=== PATIENT | male | born 1980 | race Caucasian/White ===

== ENCOUNTER 2022-11-15 07:16 | Outpatient (REF) | payer BC, SELFPAY ==
[2022-11-15 11:06] LABS: MANUAL DIFF FLAG NO
[2022-11-15 11:21] LABS: Basophils Percent Auto 0.5 % (0-2); Eosinophils Absolute Auto 0.3 X10*3/uL (0.0-0.4); Eosinophils Percent Auto 4.9 % (0-4); Hematocrit 44.4 % (42.0-52.0); Hemoglobin 14.9 g/dl (14.0-18.0); Imm Gran Abs Auto 0.01 X10*3/uL (0.00-0.03); Imm Gran Pct Auto 0.2 % (0.0-0.4); Lymphocytes Absolute Auto 1.9 X10*3/uL (1.2-4.9); Lymphocytes Percent Auto 32.7 % (20-40); Mean Corpuscular HGB Conc 33.6 g/dl (31.0-36.0); Mean Corpuscular Hemoglobin 30.7 pg (27.0-33.0); Mean Corpuscular Volume 91.5 fL (80.0-98.0); Mean Platelet Volume 9.6 fL (9.4-12.4); Monocytes Absolute Auto 0.6 X10*3/uL (0.1-1.2); Monocytes Percent Auto 10.4 % (2-11); Neutrophils Percent Auto 51.3 % (45-73); Platelet Count 251 X10*3/uL (160-400); Red Blood Count 4.85 X10*6/uL (4.60-5.80); White Blood Count 5.8 X10*3/uL (4.8-10.8)
[2022-11-15 11:38] LABS: Appearance Urine Clear; Color Urine Yellow; Glucose Urine UA Negative (Negative); Leukocyte Esterase Urine Negative (Negative); Nitrite Urine Negative (Negative); Specific Gravity - Urine 1.025 (1.005-1.025); Urine Blood Negative (Negative); Urine Ketones Negative (Negative); Urine Protein Negative (Neg-Trace)
[2022-11-15 11:48] LABS: Alanine Aminotransferase 22 U/L (0-40); Albumin Level 4.2 g/dL (3.5-5.0); Alkaline Phosphatase 51 U/L (39-117); Anion Gap 11 (12-20); Aspartate Amino Transferase 21 U/L (5-37); Blood Urea Nitrogen 13 mg/dL (9-16); Carbon Dioxide 25 mmol/L (22-29); Chloride 109 mmol/L (96-108); Cholesterol 192 mg/dL; Estimated Glomerular Filt Rate > 60; Glucose Fasting 100 mg/dL (60-99); HDL Cholesterol 46 mg/dL; LDL Cholesterol Calculated 127 mg/dl; Potassium 4.3 mmol/L (3.3-5.1); Sodium 141 mmol/L (135-145); Total Protein 6.9 g/dL (6.5-8.0); Triglycerides 95 mg/dL
[2022-11-15 12:15] LABS: Prostate Specific Antigen Scr 1.78 ng/mL (<0.05-4.0)
== END 2022-11-15 07:17 | disposition home or self-care (01) ==
LOC: HO.WFDLDS 07:16
PROVIDERS: Visit Provider Family Medicine
DX: Z00.00 Encounter for general adult medical examination without abnormal findings (principal); Z12.5 Encounter for screening for malignant neoplasm of prostate
CPT/HCPCS: 36415; 80053; 80061; 81003; 84153; 84443; 85025

== ENCOUNTER 2023-05-04 11:47 | Outpatient (AMB) | payer BC, SELFPAY ==
--- NOTE | 2023-05-04 11:52 | MHC.PC.OV ---
Vital Signs 05/04/23 11:54 Height 6 ft 2 in Weight 228 lb 8 oz BMI 29.3 BP 120/72 Blood Pressure Location Rt brachial Position Sitting Pulse 62 Pulse Source Pulse Oximeter Pulse Oximetry (%) 98 Oxygen Delivery Method Room Air Intake Visit Reasons: snoring concern Intake Note: Patient is here with a snoring concern, tried products without results. Allergies No Known Allergies Allergy (Verified 05/04/23 11:55) Tobacco use date assessed: 05/04/23 Dental Screening Dental Screen Date: 05/04/23 Did you have a dental visit in the last 12 months?: Yes Did you have a dental problem in the last 6 months where you did not have access to dental care?: No Was dental information given to patient?: No HPI snoring concern HPI Details 43 y/o male presents today with snoring concerns. He reports it has been getting more pronounced lately which his has noticed. He reports he has not had a sleep study yet. [facility] Surgical History H/O vasectomy Social History Housing: House Patient Tobacco Use Status: Never used Tobacco e-Cigarette/Vaping Use: Never Used Current occupational status: employed Cognitive needs: No Hearing needs: No Vision needs: No Questionnaire MARIBEL-7 AMB Questionnaire MARIBEL-7 Date MARIBEL - 7 assessed: 09/29/22 Source: Developed by Drs. Robles Guo, Alyse Baig, Gabino Hernandez and colleagues, with an educational sergey from [employer]. Review of Systems Const Denies chills, Denies fatigue, Denies fever(s), Denies headache(s) and Denies weakness ENT Denies dizziness and Denies headache(s) Card Denies dyspnea Resp Denies cough, Denies dyspnea, Denies wheezing and Denies other (shortness of breath) Musc Denies numbness and Denies tingling Neuro Denies dizziness, Denies headache(s), Denies numbness, Denies tingling and Denies weakness Psych Denies anxiety and Denies depression Endo Denies fatigue Aller/Immun Denies wheezing Physical exam (Primary Care) Vital Signs: Last Vital Signs Pulse 62 05/04/23 11:54 BP 120/72 05/04/23 11:54 Pulse Ox 98 05/04/23 11:54 Oxygen Delivery Method Room Air 05/04/23 11:54 BMI result Body Mass Index 29.3 Tobacco/Smoking Status: Tobacco use Status Tobacco use date assessed 05/04/23 05/04/23 11:56 Patient Tobacco Use Status Never used Tobacco 05/04/23 11:56 e-Cigarette/Vaping Use Never Used 05/04/23 11:56 Const General: well developed; No acute distress Nutritional Appearance: well nourished Orientation/consciousness: patient oriented x3 HENMT Head: Yes normocephalic and Yes atraumatic Eyes General: appearance normal, both eyes and all related structures Pupils: Equal, round and reactive pupils present EOM: EOMs intact bilaterally Resp Effort & Inspection: normal respiratory effort Neuro General: patient oriented x3 and gait normal Cranial nerves: Yes Equal, round and reactive pupils present Psych Affect: normal affect Assessment and Plan Assessment & Plan (1) Snoring: Code(s): R06.83 - Snoring Plan: Snoring and nasal passages poorly patent despite no evidence of nasal congestion Appears to have left nasal septum deviation This may be the underlying cause of snoring Will refer him to ENT Will also refer him to Sleep Medicine (2) Nasal septal deviation: Code(s): J34.2 - Deviated nasal septum Plan: As above Orders: Referrals Ear/Nose/Throat Referral R06.83 - Snoring Sleep Medicine Referral G47.9 - Sleep disorder, unspecified, R06.83 - Snoring Coding Level of Care Code Est Pt Level 3 (19272) Diagnoses Snoring R06.83 Nasal septal deviation J34.2
[2023-05-04 11:54] VITALS: BP 120/72; PULSE 62; O2SAT 98; BMI 29.3
== END 2023-05-04 12:59 | disposition home or self-care (01) ==
PROVIDERS: PCP Family Medicine; Visit Provider Family Medicine
DX: R06.83 Snoring (principal); J34.2 Deviated nasal septum
CPT/HCPCS: 99213

== ENCOUNTER 2023-07-30 15:24 | Outpatient (AMB) | payer BC, SELFPAY ==
--- NOTE | 2023-07-30 15:33 | A.OFFVIS_ITS ---
Intake Vital Signs 07/30/23 15:34 Height 6 ft 2 in Weight 226 lb BMI 29.0 BP 130/82 Blood Pressure Location Rt brachial Position Sitting Intake Visit Reasons: INP-Sleep Disorder/Confirmed Intake Note: Patient presents for sleep disorder. Patient states my main reason for being here is for snoring Allergies No Known Allergies Allergy (Verified 05/04/23 11:55) HPI HPI Comments History of Present Illness Details 43 y/o male patient [facility] Pt reports loud snoring and witnessed apnea spells. He has appointment with ENT in November. He tired nasal strip, and taped his mouth, mouth guard but did not help to reduce sleep. Pt also lost about 20 lb over the last 10 months, but he does not noticed that any improvement. Pt reports jerk movement when he falls asleep. Sleep questionnaire: Have you ever been diagnosed with a sleep disorder? No. Have you ever had a sleep study in the past? No. Have you ever been treated for a sleep disorder? No. Do you take medications for a sleep disorder? No. Do you snore? Yes. Do you wake up gasping at night? No. Do you have episodes of apneas? Yes. If yes, are they witnessed? Yes. Do you have episodes of nocturnal chest pain or dyspnea? Yes. Do you have difficulty initiating sleep? No. Do you have difficulty maintaining sleep? No. Do you wake up tired? No. Do you have headaches upon awakening? No. Do you wake up with dry mouth or throat? Not normally. Do you have GERD? No. Do you have nocturia? Not really. Do you have nocturnal leg cramps? No. Do you have symptoms of restless legs? No. Do you act out your dreams? No. Sleep hygiene questionnaire: What is your usual sleep routine? Usual bedtime is at 11:30 pm ; Usual wake up time is at 6 am. Do you take naps? No. Is your sleep environment cool, dark, and quiet? Yes. Do you exercise? 4-5 times a week. Do you take caffeine or other stimulants? Coffee in the morning and afternoon. Do you use electronics in bed? Yes, sometimes. What is your work schedule? 6 :30 am to 5 pm. Hypersomnolence questionnaire: Do you have daytime tiredness or fatigue? Yes. Do you easily fall asleep when inactive? No. Have you ever had episodes of sudden weakness? No. Have you ever had episodes of sudden weakness associated with strong emotions? No. PFSH Surgical History Hx laparoscopic cholecystectomy H/O vasectomy Family History Father Atrial fibrillation Social History Housing: House Patient Tobacco Use Status: Never used Tobacco e-Cigarette/Vaping Use: Never Used Current occupational status: employed Cognitive needs: No Hearing needs: No Vision needs: No Review of Systems Const All systems reviewed & are unremarkable except as noted in HPI and below ENT Reports Normal hearing present Neuro Reports Normal hearing present Physical Exam Vital Signs: Last Vital Signs BP 130/82 07/30/23 15:34 BMI result Body Mass Index 29.0 Const General: cooperative and healthy appearing Nutritional Appearance: overweight Orientation/consciousness: patient oriented x3 Limitations: no limitations Neck Neck: Yes full ROM and Yes supple Resp Effort & Inspection: normal respiratory effort and able to speak in complete sentences Neuro General: patient oriented x3 and gait normal Cranial nerves: Yes Bilaterally intact EOM present, Yes Normal facial strength present, Yes Midline tongue present, Yes Symmetric palate elevation present, Yes Normal hearing present, Yes Ability to bilaterally rotate head present and Yes Ability to bilaterally elevate shoulders present Cognition (Neuro): normal cognition Gait exam (Neuro): Normal gait present Motor exam (neuro): 5/5 motor strength present throughout, Pronator motor function not present and no tremor noted Psych Appearance: grossly normal Mental Status: mental status grossly normal Speech and movement: Normal speech and movement present Affect: normal affect Attitude: cooperative Assessment & Plan Assessment & Plan (1) Snoring: Code(s): R06.83 - Snoring (2) Daytime sleepiness: Code(s): R40.0 - Somnolence Plan Pt is advised to undergo home sleep study to assess for sleep apnea. Will f/u with pt after study to discuss results and appropriate treatment options. Advised patient to sleep on his side. Pt to call with any worsening concerns or questions. Orders: Orders RT home sleep study Today R06.83 - Snoring, R40.0 - Somnolence Coding Level of Care Code New Pt Level 3 (37229) Diagnoses Snoring R06.83 Daytime sleepiness R40.0
[2023-07-30 15:34] VITALS: BP 130/82; BMI 29.0
== END 2023-07-30 16:03 | disposition home or self-care (01) ==
PROVIDERS: PCP Family Medicine; Visit Provider Nurse Practitioner Family
DX: R06.83 Snoring (principal); R40.0 Somnolence
CPT/HCPCS: 99203

== ENCOUNTER → 2023-07-30 15:24 | Outpatient (BNVA) | payer BC, SELFPAY | PROVIDERS: PCP Family Medicine; Visit Provider Nurse Practitioner Family ==

== ENCOUNTER → 2023-10-08 14:03 | Outpatient (REF) | payer BC, SELFPAY | LOC: HO.SL 14:03 | PROVIDERS: PCP Family Medicine; Visit Provider Nurse Practitioner Family | DX: R40.0 Somnolence (principal); R06.83 Snoring | CPT/HCPCS: 95806 ==

== ENCOUNTER → 2023-10-08 14:16 | Outpatient (BNV) | payer BC, SELFPAY | PROVIDERS: PCP Family Medicine; Visit Provider Psychiatry & Neurology Neurology | DX: R06.83 Snoring (principal) | CPT/HCPCS: 95806 ==

== ENCOUNTER 2024-01-25 10:58 | Outpatient (AMB) | payer BC, SELFPAY ==
[2024-01-25 11:20] VITALS: BP 120/62; PULSE 67; O2SAT 98; BMI 28.1
--- NOTE | 2024-01-25 11:20 | A.OFFPC_ITS ---
Vital Signs 01/25/24 11:20 Height 6 ft 2 in Weight 219 lb BMI 28.1 BP 120/62 Blood Pressure Location Lt brachial Position Sitting Pulse 67 Pulse Source Pulse Oximeter Pulse Oximetry (%) 98 Oxygen Delivery Method Room Air Intake Visit Reasons: CPE with f/u labs and health maint. Intake Note: Patient is here today for his physical. Patient would like to talk about podiatry referral due to foot inury about a year ago. Allergies No Known Allergies Allergy (Verified 01/25/24 11:24) Tobacco use date assessed: 01/25/24 Dental Screening Dental Screen Date: 01/25/24 Did you have a dental visit in the last 12 months?: Yes Did you have a dental problem in the last 6 months where you did not have access to dental care?: No Was dental information given to patient?: Patient has dentist HPI CPE with f/u labs and health maint. HPI Details 43 y/o male presents for a CPE with f/u labs and health maintenance. No recent labs to review. Pt reports R foot pain due to an injury from last year. He states he thinks he might have injured it exercising. Pt notes he had done a sleep study which came out negative. PFSH Surgical History Hx laparoscopic cholecystectomy H/O vasectomy Family History (Updated 01/25/24 @ 11:26 by Maria Elena Serna [facility]) Father Atrial fibrillation Social History Housing: House Patient Tobacco Use Status: Never used Tobacco e-Cigarette/Vaping Use: Never Used service: No Current occupational status: employed Cognitive needs: No Hearing needs: No Vision needs: No Questionnaire PHQ-9 Over the last 2 weeks, how often have you been bothered by any of the following problems? 1. Little interest or pleasure in doing things: not at all 2. Feeling down, depressed, or hopeless: not at all 3. Trouble falling or staying asleep, or sleeping too much: not at all 4. Feeling tired or having little energy: not at all 5. Poor appetite or overeating: not at all 6. Feeling bad about yourself - or that you are a failure or have let yourself or your family down: not at all 7. Trouble concentrating on things, such as reading the newspaper or watching television: not at all 8. Moving or speaking so slowly that other people could have noticed. Or the opposite - being so fidgety or restless that you have been moving around a lot more than usual: not at all 9. Thoughts that you would be better off or of hurting yourself in some way: not at all Total score: 0 Depression Screening Interpretation: Negative Depression Screening Done: Yes 60315 - PHQ-9 Billing: Yes Source: Developed by Drs. Robles Guo, Alyse Baig, Gabino Hernandez and colleagues, with an educational sergey from [employer]. Thrive Questionnaire Date Thrive assessed: 01/25/24 I am a: Patient What is your living situation today?: I have a steady place to live Within the past 12 months, did the food you bought not last and you didn't have the money to get more?: Never true Within the past 12 months, did you worry whether your food would run out before you got money to buy more?: Never true Do you have trouble paying for medicines?: No Do you have trouble getting transportation to medical appointments?: No Do you have trouble paying your heating and electricity bill?: No Do you have trouble taking care of your child, family member or friend?: No Do you have trouble with day-to-day activities such as bathing, preparing meals, shopping, managing finances, etc.?: No Are you currently unemployed and looking for a job?: No Are you interested in more education?: No THRIVE Score: 0 AUDIT C Alcohol Use Questionnaire (AUDIT-C) 1. How often do you have a drink containing alcohol?: 2-4 times a month 2. How many drinks containing alcohol do you have on a typical day when you are drinking?: 1 or 2 3. How often do you have six or more drinks on one occasion?: Never Total Score: 2 MARIBEL-7 AMB Questionnaire MARIBEL-7 Date MARIBEL - 7 assessed: 01/25/24 Feeling nervous, anxious, or on edge: 0 = Not at all Not being able to stop or control worryin = Not at all Worrying too much about different things: 0 = Not at all Trouble relaxin = Not at all Being so restless that it is hard to sit still: 0 = Not at all Becoming easily annoyed or irritable: 0 = Not at all Feeling afraid as if something awful might happen: 0 = Not at all Total MARIBEL-7 score (0-4 normal; 5-9 mild; 10-14 moderate; 15-21 severe): 0 Source: Developed by Drs. Robles Guo, Alyse Baig, Gabino Hernandez and colleagues, with an educational sergey from [employer]. MARIBEL-7 Assessment Billing MARIBEL-7 Assessment Tool: MARIBEL-7 Assessment 79806 Review of Systems Const Denies chills, Denies fatigue, Denies fever(s), Denies headache(s) and Denies weakness Eyes Denies change in vision ENT Denies dizziness, Denies headache(s), Denies hearing loss, Denies nasal conge stion, Denies sinus pain, Denies sinus pressure and Denies sore throat Card Denies chest pain, Denies lightheadedness, Denies dyspnea and Denies other (palpitations) Resp Denies cough, Denies dyspnea and Denies wheezing GI Denies abdominal pain, Denies melena, Denies hematochezia, Denies change in bowel habits, Denies dyspepsia and Denies nausea Denies hematuria and Denies dysuria Musc Denies abnormal gait, Denies myalgias, Denies arthralgias, Denies numbness and Denies tingling Skin/Breast Denies rash, Denies unusual bruising and Denies wounds Neuro Denies abnormal gait, Denies dizziness, Denies headache(s), Denies memory loss, Denies numbness, Denies Sensory deficit (Neuro), Denies tingling and Denies weakness Psych Denies anxiety, Denies depression and Denies memory loss Endo Denies cold intolerance, Denies fatigue, Denies heat intolerance, Denies polydipsia and Denies polyuria Maged/Lymph Denies easy bleeding and Denies easy bruising Aller/Immun Denies wheezing Physical exam (Primary Care) Vital Signs: Last Vital Signs Pulse 67 01/25/24 11:20 BP 120/62 01/25/24 11:20 Pulse Ox 98 01/25/24 11:20 Oxygen Delivery Method Room Air 01/25/24 11:20 BMI result Body Mass Index 28.1 Tobacco/Smoking Status: Tobacco use Status Tobacco use date assessed 01/25/24 01/25/24 11:32 Patient Tobacco Use Status Never used Tobacco 01/25/24 11:22 e-Cigarette/Vaping Use Never Used 01/25/24 11:22 PHQ-9: PHQ-9 Score PHQ-9: Total score 0 01/25/24 11:44 Depression Screening Interpretation: Negative Thrive Assessment: Date of Thrive Assessment Date Thrive assessed 01/25/24 01/25/24 11:32 Const General: no acute distress, well developed, alert and awake Nutritional Appearance: well nourished Orientation/consciousness: patient oriented x3 HENMT Head: Yes normocephalic and Yes atraumatic Ears: hearing grossly normal bilaterally and TM's normal bilaterally General nose exam: Normal external nose present and Normal nares present Mouth: Normal oral and palatal mucosa present and moist mucous membranes Teeth and gingiva: dentition normal Throat: Yes posterior oropharynx normal Eyes General: appearance normal, both eyes and all related structures Pupils: Equal, round and reactive pupils present and Pupil accommodation reflex normal EOM: EOMs intact bilaterally Neck Neck: Yes normal visual inspection, Yes no lymphadenopathy and Yes trachea midline Thyroid: Thyroid normal Carotids: no bruits Lymphatic: no lymphadenopathy noted Chest Chest palpation & inspection: normal inspection of the chest Resp Effort & Inspection: normal respiratory effort Auscultation: clear to auscultation bilaterally Cardio Rate: regular rate Rhythm: regular rhythm Heart sounds: S1 normal heart sound present, S2 normal heart sound present, no gallops, no murmurs and no rubs Bruits: no abdominal aortic bruits and no carotid bruits GI Palpation (GI): No Abdominal aortic bruit present, Soft to palpation, nontender, No hepatosplenomegaly present and No Rebound tenderness present Auscultation: normal bowel sounds General: Yes no CVA tenderness Back/Spine/Pelvis Back: no CVA tenderness Cervical Spine: cervical ROM normal and No Cervical spine tenderness Thoracic/Lumbar Spine: thoraco-lumbar ROM normal, No pain with thoraco-lumbar ROM, No thoracic spinal tenderness and No lumbar spinal tenderness Skin Lesions: no lesions Rashes: no rashes Trauma: no lacerations or abrasions Wounds: no wounds Nails: normal Neuro General: patient oriented x3 Cranial nerves: Yes Equal, round and reactive pupils present Cognition (Neuro): normal cognition Gait exam (Neuro): Normal gait present Motor exam (neuro): 5/5 motor strength present throughout Sensory Exam: No Sensory deficit (Neuro) Deep tendon reflexes (DTR's): Right patellar reflex intensity grade: 2+ and Left patellar reflex intensity grade: 2+ Extrem General: Yes normal to inspection and No edema Psych Appearance: grossly normal Affect: normal affect Attitude: cooperative Thought process: Normal thought process present Assessment and Plan Assessment & Plan (1) Adult general medical exam: Code(s): Z00.00 - Encounter for general adult medical examination without abnormal findings Plan: Old?male?presents?for?complete?physical?exam Encouraged?healthy?diet?with?active?lifestyle?and?plenty?of?exercise (2) Snoring: Code(s): R06.83 - Snoring Plan: Patient?had?sleep?study?which?was?negative ENT?discussed?medical?management?versus?surgery?and?currently?patient?intends?to ?use?Flonase Will?send?script (3) Right foot pain: Code(s): M79.671 - Pain in right foot Plan: Pain?with?plantar?flexion,?eversion?and?lateral?compression. No?disc rete?moment?of?injury?but?patient?exercises?frequently?with?impact?exercises?suc h?as?running Check?x-ray?to?rule?out?stress?fracture Requests?referral?to?Podiatry-made (4) Nasal septal deviation: Code(s): J34.2 - Deviated nasal septum Plan: As?above,?patient?has?some?nasal?septal?deviation?and?snoring. Sleep?study?was?negative. ENT?recommended?medical?management.??I?am?sending?a?script?for?Flonase (5) Screening for prostate cancer: Code(s): Z12.5 - Encounter for screening for malignant neoplasm of prostate Plan: Will?check?PSA?with?his?labs Orders: Orders Comprehensive [place]. Panel Fast Today Z00.00 - Encounter for general adult medical examination without abnormal findings Lipid Panel Today Z00.00 - Encounter for general adult medical examination without abnormal findings UA and rflx microscopic Today Z00.00 - Encounter for general adult medical examination without abnormal findings XR foot RT 2V Today M79.671 - Pain in right foot Microalbumin, Random (w Creat) Today I10 - Essential (primary) hypertension Prostate Specific Antigen Scr Today Z12.5 - Encounter for screening for malignant neoplasm of prostate TSH reflex Free T4 Today Z00.00 - Encounter for general adult medical examination without abnormal findings Referrals Podiatry Referral M79.671 - Pain in right foot Medications: New fluticasone propionate 50 mcg/actuation (Flonase Allergy Relief) administer into each nostril 1 spray intranasal Q12H 30 days 16 grams 2RF Coding Level of Care Code Est Pt Level 3 (59427) Est Pt Prev Care 40-64y(09463) Diagnoses Adult general medical exam Z00.00 Snoring R06.83 Right foot pain M79.671 Nasal septal deviation J34.2 Screening for prostate cancer Z12.5 Additional Codes MARIBEL-7 Assessment Billing - MARIBEL-7 Assessment Tool: MARIBEL-7 Assessment 69608 ([id number])
== END 2024-01-25 12:05 | disposition home or self-care (01) ==
PROVIDERS: Visit Provider Family Medicine
DX: Z00.00 Encounter for general adult medical examination without abnormal findings (principal); M79.671 Pain in right foot; R06.83 Snoring; J34.2 Deviated nasal septum; Z12.5 Encounter for screening for malignant neoplasm of prostate
CPT/HCPCS: 99213; 99396

== ENCOUNTER 2024-02-07 09:20 | Outpatient (REF) | payer BC, SELFPAY ==
[2024-02-07 12:15] LABS: Appearance Urine Clear; Color Urine Yellow; Glucose Urine UA Negative (Negative); Leukocyte Esterase Urine Negative (Negative); Nitrite Urine Negative (Negative); PH 6.5 (5.0-9.0); Urine Blood Negative (Negative); Urine Ketones Negative (Negative); Urine Protein Negative (Neg-Trace)
[2024-02-07 12:48] LABS: Alanine Aminotransferase 20 U/L (0-40); Albumin Level 4.3 g/dL (3.5-5.0); Alkaline Phosphatase 44 U/L (39-117); Anion Gap 10 (12-20); Aspartate Amino Transferase 18 U/L (5-37); Bilirubin Total 1.9 mg/dL (0.0-1.0); Blood Urea Nitrogen 13 mg/dL (9-16); Calcium 9.3 mg/dL (8.4-10.2); Carbon Dioxide 27 mmol/L (22-29); Chloride 107 mmol/L (96-108); Cholesterol 152 mg/dL (<200); Estimated Glomerular Filt Rate > 60; Glucose Fasting 93 mg/dL (60-99); HDL Cholesterol 54 mg/dL (>40); LDL Cholesterol Calculated 84 mg/dL (<100); Potassium 4.1 mmol/L (3.3-5.1); Sodium 140 mmol/L (135-145); TSH reflex Free T4 1.38 uIU/mL (0.32-4.0); Triglycerides 73 mg/dL (<150)
[2024-02-07 12:52] LABS: Prostate Specific Antigen Scr 1.31 ng/mL (<0.05-4.0)
[2024-02-07 12:58] LABS: Microalbumin Urine < 5.0 mg/L
== END 2024-02-07 09:21 | disposition home or self-care (01) ==
LOC: HO.WFDLDS 09:20
PROVIDERS: Visit Provider Family Medicine
DX: Z00.00 Encounter for general adult medical examination without abnormal findings (principal); I10 Essential (primary) hypertension; Z12.5 Encounter for screening for malignant neoplasm of prostate
CPT/HCPCS: 36415; 80053; 80061; 81003; 82043; 82570; 84153; 84443

== ENCOUNTER → 2024-02-14 14:02 | Outpatient (AMB) | payer BC, SELFPAY ==
--- NOTE | 2024-02-14 13:57 | MHC.PC.OV ---
Intake Visit Reasons: f/u CPE-labs via telemedicine Intake Note: Patient is scheduled to follow up on his labs today. Allergies No Known Allergies Allergy (Verified 01/25/24 11:24) Tobacco use date assessed: 02/14/24 Dental Screening Dental Screen Date: 01/25/24 HPI f/u CPE-labs via telemedicine HPI Details 43 y/o male presents to f/u CPE-labs via telemedicine. Labs were drawn 02/07/24. Reviewed labs with pt. Triglycerides 73. TC 152. LDL 84. HDL 54. Fasting glucose 93. His labs were fine. PFSH Medical History Foot pain Surgical History Hx laparoscopic cholecystectomy H/O vasectomy Family History Father Atrial fibrillation Social History Housing: House Patient Tobacco Use Status: Never used Tobacco e-Cigarette/Vaping Use: Never Used service: No Current occupational status: employed Cognitive needs: No Hearing needs: No Vision needs: No Questionnaire Thrive Questionnaire Date Thrive assessed: 01/25/24 MARIBEL-7 AMB Questionnaire MARIBEL-7 Date MARIBEL - 7 assessed: 01/25/24 Source: Developed by Drs. Robles Guo, Alyse Baig, Gabino Hernandez and colleagues, with an educational sergey from [employer]. Review of Systems Const Denies chills, Denies fatigue, Denies fever(s), Denies headache(s) and Denies weakness ENT Denies dizziness and Denies headache(s) Card Denies dyspnea Resp Denies cough, Denies dyspnea, Denies wheezing and Denies other (shortness of breath) Musc Denies numbness and Denies tingling Neuro Denies dizziness, Denies headache(s), Denies numbness, Denies tingling and Denies weakness Psych Denies anxiety and Denies depression Endo Denies fatigue Aller/Immun Denies wheezing Physical exam (Primary Care) Tobacco/Smoking Status: Tobacco use Status Tobacco use date assessed 02/14/24 02/14/24 14:01 Patient Tobacco Use Status Never used Tobacco 02/14/24 14:01 e-Cigarette/Vaping Use Never Used 02/14/24 14:01 Thrive Assessment: Date of Thrive Assessment Date Thrive assessed 01/25/24 02/14/24 14:01 Telehealth Telehealth Telehealth Platform: Telephone Location of provider rendering services: practice address Location of patient: address on file Patient Identification confirmed using: Name, : Yes Telehealth method: voice only Patient verbally consented to treatment: Yes Patient verbally consented to billing insurance company: Yes Patient informed of any privacy concerns related to visit: Yes Assessment and Plan Assessment & Plan (1) Elevated fasting glucose: Code(s): R73.01 - Impaired fasting glucose Plan: Prior?reading?showed?elevated?fasting?blood?sugar?at?100 Blood?sugar?is?within?normal?range?now (2) Right foot pain: Code(s): M79.671 - Pain in right foot Plan: Patient?is?now?followed?by??[facility] Doing?well Follow-up?with?podiatry?as?recommended Orders: Orders Comprehensive [place]. Panel Fast 10 Months Z00.00 - Encounter for general adult medical examination without abnormal findings Lipid Panel 10 Months Z00.00 - Encounter for general adult medical examination without abnormal findings Prostate Specific Antigen Scr 10 Months Z12.5 - Encounter for screening for malignant neoplasm of prostate Complete Blood Count Auto Diff 10 Months Z00.00 - Encounter for general adult medical examination without abnormal findings Microalbumin, Random (w Creat) 10 Months I10 - Essential (primary) hypertension TSH reflex Free T4 10 Months Z00.00 - Encounter for general adult medical examination without abnormal findings UA and rflx microscopic 10 Months Z00.00 - Encounter for general adult medical examination without abnormal findings Coding Level of Care Code Tele Est Pt Level 2 (58467) Diagnoses Elevated fasting glucose R73.01 Right foot pain M79.671
== END ==
PROVIDERS: PCP Family Medicine; Visit Provider Family Medicine
DX: R73.01 Impaired fasting glucose (principal); M79.671 Pain in right foot
CPT/HCPCS: 99441

== ENCOUNTER 2024-08-06 08:40 | Outpatient (AMB) | payer BC, SELFPAY ==
--- NOTE | 2024-08-06 08:37 | A.OFFPC_ITS ---
Intake Visit Reasons: hives advice Allergies No Known Allergies Allergy (Verified 08/06/24 08:37) Tobacco use date assessed: 02/14/24 Dental Screening Dental Screen Date: 01/25/24 HPI hives advice HPI Details Patient?notes?that?his??was?sick?in?early?June?and?he?began?feeling Sick starting Jul 07 to . Towards?the?end?of?his?illness,?he?began?noticing?hives?on?his?body?which?are?it shruthi. He?has?been?taking?fexofenadine?for?this?which?does?help. Does?still?notice?some?mild?cough?but?no?throat?tight ening?or?difficulty?swallowing?or?breathing. PFSH Medical History Foot pain Surgical History Hx laparoscopic cholecystectomy H/O vasectomy Family History Father Atrial fibrillation Social History Housing: House Patient Tobacco Use Status: Never used Tobacco e-Cigarette/Vaping Use: Never Used service: No Current occupational status: employed Cognitive needs: No Hearing needs: No Vision needs: No Questionnaire Thrive Questionnaire Date Thrive assessed: 01/25/24 MARIBEL-7 AMB Questionnaire MARIBEL-7 Date MARIBEL - 7 assessed: 01/25/24 Source: Developed by Drs. Robles Guo, Alyse Baig, Gabino Hernandez and colleagues, with an educational sergey from [employer]. Review of Systems Const Denies chills, Denies fatigue, Denies fever(s), Denies headache(s) and Denies weakness ENT Denies dizziness and Denies headache(s) Card Denies chest pain, Denies lightheadedness, Denies dyspnea and Denies other (Palpitations) Resp Reports cough (mild), Denies dyspnea, Denies wheezing and Denies other ( shortness of breath) Musc Denies numbness and Denies tingling Skin/Breast Details: Hives Neuro Denies dizziness, Denies headache(s), Denies numbness, Denies tingling, Denies paresthesias and Denies weakness Psych Denies anxiety and Denies depression Endo Denies fatigue Aller/Immun Denies wheezing Physical exam (Primary Care) Tobacco/Smoking Status: Tobacco use Status Tobacco use date assessed 02/14/24 08/06/24 08:38 Patient Tobacco Use Status Never used Tobacco 08/06/24 08:38 e-Cigarette/Vaping Use Never Used 08/06/24 08:38 Thrive Assessment: Date of Thrive Assessment Date Thrive assessed 01/25/24 08/06/24 08:38 Const Other: Audio only. No exam Telehealth Telehealth Telehealth Platform: Telephone Location of provider rendering services: practice address Location of patient: address on file Patient Identification confirmed using: Name, : Yes Telehealth method: voice only Patient verbally consented to treatment: Yes Patient verbally consented to billing insurance company: Yes Patient informed of any privacy concerns related to visit: Yes Minutes spent on Phone/Video with Pt.: 5 Coding Level of Care Code Tele Est Pt Level 2 (60774) Diagnoses Urticaria L50.9 Assessment & Plan Assessment & Plan (1) Urticaria: Code(s): L50.9 - Urticaria, unspecified Category: Medical Plan: Ongoing?hives?after?likely?viral?illness. Will?give?him?a?prednisone?taper?and?second-generation?antihistamine.??He?can?us e?Benadryl?at?night?for?worsening/flare-ups. Cool?showers?and?loose?fitting?clothes If?any?difficulty?swallowing?or?breathing?he?should?use?EpiPen?and?go?to?the?ED. If?not?improving?he?will?let?me?know?and?will?re- evaluate.??May?need?referral?to?immunology Medications: New prednisone 4 tabs daily for 4 days, 3 tabs daily for 2 days, 2 tabs daily for 2 days, 1 tab daily for 2 days PO daily; 10 days 28 tabs 0RF epinephrine (EpiPen 2-Chinmay) 0.3 mg (0.3 mL) IM Q4H 30 days PRN 2 ea 2RF anaphylaxis cetirizine (All Day Allergy (cetirizine)) 10 mg PO DAILY 30 days PRN 30 tabs 0RF allergy symptoms
== END 2024-08-06 17:05 | disposition home or self-care (01) ==
LOC: HO.HMCFM 08:40
PROVIDERS: PCP Family Medicine; Visit Provider Family Medicine
DX: L50.9 Urticaria, unspecified (principal)

== ENCOUNTER → 2024-08-06 08:40 | Outpatient (BNVA) | payer BC, SELFPAY | PROVIDERS: PCP Family Medicine; Visit Provider Family Medicine ==

== ENCOUNTER 2025-02-19 08:55 | Outpatient (AMB) | payer BC, SELFPAY ==
--- NOTE | 2025-02-19 09:27 | MHC.PC.OV ---
Vital Signs 02/19/25 09:30 Height 6 ft 2 in Weight 214 lb 6 oz BMI 27.5 BP 116/70 Blood Pressure Location Rt brachial Position Sitting Respiration 14 Pulse 56 Pulse Source Pulse Oximeter Temp 97.5 F Temp Source Oral Pulse Oximetry (%) 99 Oxygen Delivery Method Room Air Intake Visit Reasons: PE Intake Note: patient is scheduled for PE Lathe Turner Required: No Allergies No Known Allergies Allergy (Verified 02/19/25 09:27) Medication List - Last Reconciled 02/19/25 by Cornelius Oates MD cetirizine (All Day Allergy (cetirizine)) 10 mg PO DAILY PRN 30 days epinephrine (EpiPen 2-Chinmay) 0.3 mg (0.3 mL) IM Q4H PRN 30 days fluticasone propionate 50 mcg/actuation (Flonase Allergy Relief) 1 spray intranasal Q12H 30 days Tobacco use date assessed: 02/19/25 Dental Screening Dental Screen Date: 02/19/25 Did you have a dental visit in the last 12 months?: Yes Did you have a dental problem in the last 6 months where you did not have access to dental care?: No Was dental information given to patient?: Patient has dentist HPI PE HPI Details 44 y/o male presents for a CPE with f/u labs and health maintenance. No recent labs to review. PFSH Medical History Foot pain Surgical History Hx laparoscopic cholecystectomy H/O vasectomy Family History Father Atrial fibrillation Social History Housing: House Patient Tobacco Use Status: Never used Tobacco e-Cigarette/Vaping Use: Never Used service: No Current occupational status: employed Cognitive needs: No Hearing needs: No Vision needs: No Questionnaire PHQ-9 Over the last 2 weeks, how often have you been bothered by any of the following problems? 1. Little interest or pleasure in doing things: not at all 2. Feeling down, depressed, or hopeless: not at all 3. Trouble falling or staying asleep, or sleeping too much: not at all 4. Feeling tired or having little energy: not at all 5. Poor appetite or overeating: not at all 6. Feeling bad about yourself - or that you are a failure or have let yourself or your family down: not at all 7. Trouble concentrating on things, such as reading the newspaper or watching television: not at all 8. Moving or speaking so slowly that other people could have noticed. Or the opposite - being so fidgety or restless that you have been moving around a lot more than usual: not at all 9. Thoughts that you would be better off or of hurting yourself in some way: not at all Total score: 0 Depression Screening Interpretation: Negative Depression Screening Done: Yes 27634 - PHQ-9 Billing: Yes Source: Developed by Drs. Robles Guo, Alyse Baig, Gabino Hernandez and colleagues, with an educational sergey from [employer]. Thrive Questionnaire Date Thrive assessed: 02/18/25 I am a: Patient What is your living situation today?: I have a steady place to live Within the past 12 months, did the food you bought not last and you didn't have the money to get more?: Never true Within the past 12 months, did you worry whether your food would run out before you got money to buy more?: Never true Do you have trouble paying for medicines?: No Do you have trouble getting transportation to medical appointments?: No Do you have trouble paying your heating and electricity bill?: No Do you have trouble taking care of your child, family member or friend?: No Do you have trouble with day-to-day activities such as bathing, preparing meals, shopping, managing finances, etc.?: No Are you currently unemployed and looking for a job?: No Are you interested in more education?: No Please select the resources that you would like help with: None Currently or been in a relationship where the following occur: No concerns reported THRIVE Score: 0 AUDIT C Alcohol Use Questionnaire (AUDIT-C) 1. How often do you have a drink containing alcohol?: 2-3 times a week 2. How many drinks containing alcohol do you have on a typical day when you are drinking?: 1 or 2 3. How often do you have six or more drinks on one occasion?: Never Total Score: 3 MARIBEL-7 AMB Questionnaire MARIBEL-7 Date MARIBEL - 7 assessed: 02/19/25 Feeling nervous, anxious, or on edge: 0 = Not at all Not being able to stop or control worryin = Not at all Worrying too much about different things: 0 = Not at all Trouble relaxin = Not at all Being so restless that it is hard to sit still: 0 = Not at all Becoming easily annoyed or irritable: 0 = Not at all Feeling afraid as if something awful might happen: 0 = Not at all Total MARIBEL-7 score (0-4 normal; 5-9 mild; 10-14 moderate; 15-21 severe): 0 Source: Developed by Drs. Robles Guo, Alyse Baig, Gabino Hernandez and colleagues, with an educational sergey from [employer]. MARIBEL-7 Assessment Billing MARIBEL-7 Assessment Tool: MARIBEL-7 Assessment 00506 Review of Systems Const Denies chills, Denies fatigue, Denies fever(s), Denies headache(s) and Denies weakness Eyes Denies change in vision ENT Denies dizziness, Denies headache(s), Denies hearing loss, Denies nasal congestion, Denies sinus pain, Denies sinus pressure and Denies sore throat Card Denies chest pain, Denies lightheadedness, Denies dyspnea and Denies other (palpitations) Resp Denies cough, Denies dyspnea and Denies wheezing GI Denies abdominal pain, Denies melena, Denies hematochezia, Denies change in bowel habits, Denies dyspepsia and Denies nausea Denies hematuria and Denies dysuria Musc Denies abnormal gait, Denies myalgias, Denies arthralgias, Denies numbness and Denies tingling Skin/Breast Denies rash, Denies unusual bruising and Denies wounds Neuro Denies abnormal gait, Denies dizziness, Denies headache(s), Denies memory loss, Denies numbness, Denies Sensory deficit (Neuro), Denies tingling and Denies weakness Psych Denies anxiety, Denies depression and Denies memory loss Endo Denies cold intolerance, Denies fatigue, Denies heat intolerance, Denies polydipsia and Denies polyuria Maged/Lymph Denies easy bleeding and Denies easy bruising Aller/Immun Denies wheezing Physical exam (Primary Care) Vital Signs: Last Vital Signs Temp 97.5 F 02/19/25 09:30 Pulse 56 02/19/25 09:30 Resp 14 02/19/25 09:30 BP 116/70 02/19/25 09:30 Pulse Ox 99 02/19/25 09:30 Oxygen Delivery Method Room Air 02/19/25 09:30 BMI result Body Mass Index 27.5 Tobacco/Smoking Status: Tobacco use Status Tobacco use date assessed 02/19/25 02/19/25 09:32 Patient Tobacco Use Status Never used Tobacco 02/19/25 09:32 e-Cigarette/Vaping Use Never Used 02/19/25 09:32 PHQ-9: PHQ-9 Score PHQ-9: Total score 0 02/19/25 09:48 Depression Screening Interpretation: Negative Thrive Assessment: Date of Thrive Assessment Date Thrive assessed 02/18/25 02/19/25 09:32 Currently or been in a relationship where the following occur: No concerns reported Const General: no acute distress, well developed, alert and awake Nutritional Appearance: well nourished Orientation/consciousness: patient oriented x3 HENMT Head: Yes normocephalic and Yes atraumatic Ears: hearing grossly normal bilaterally and TM's normal bilaterally General nose exam: Normal external nose present and Normal nares present Mouth: Normal oral and palatal mucosa present and moist mucous membranes Teeth and gingiva: dentition normal Throat: Yes posterior oropharynx normal Eyes General: appearance normal, both eyes and all related structures Pupils: Equal, round and reactive pupils present and Pupil accommodation reflex normal EOM: EOMs intact bilaterally Neck Neck: Yes normal visual inspection, Yes no lymphadenopathy and Yes trachea midline Thyroid: Thyroid normal Carotids: no bruits Lymphatic: no lymphadenopathy noted Chest Chest palpation & inspection: normal inspection of the chest Resp Effort & Inspection: normal respiratory effort Auscultation: clear to auscultation bilaterally Cardio Rate: regular rate Rhythm: regular rhythm Heart sounds: S1 normal heart sound present, S2 normal heart sound present, no gallops, no murmurs and no rubs Bruits: no abdominal aortic bruits and no carotid bruits GI Palpation (GI): No Abdominal aortic bruit present, Soft to palpation, nontender, No hepatosplenomegaly present and No Rebound tenderness present Auscultation: normal bowel sounds General: Yes no CVA tenderness Back/Spine/Pelvis Back: no CVA tenderness Cervical Spine: cervical ROM normal and No Cervical spine tenderness Thoracic/Lumbar Spine: thoraco-lumbar ROM normal, No pain with thoraco-lumbar ROM, No thoracic spinal tenderness and No lumbar spinal tenderness Skin Lesions: no lesions Rashes: no rashes Trauma: no lacerations or abrasions Wounds: no wounds Nails: normal Neuro General: patient oriented x3 Cranial nerves: Yes Equal, round and reactive pupils present Cognition (Neuro): normal cognition Gait exam (Neuro): Normal gait present Motor exam (neuro): 5/5 motor strength present throughout Sensory Exam: No Sensory deficit (Neuro) Deep tendon reflexes (DTR's): Right patellar reflex intensity grade: 2+ and Left patellar reflex intensity grade: 2+ Extrem General: Yes normal to inspection and No edema Psych Appearance: grossly normal Affect: normal affect Attitude: cooperative Thought process: Normal thought process present Coding Level of Care Code Est Pt Level 3 (30264) Est Pt Prev Care 40-64y(47816) Diagnoses Adult general medical exam Z00.00 Screening for prostate cancer Z12.5 Screening for colon cancer Z12.11 Additional Codes MARIBEL-7 Assessment Billing - MARIBEL-7 Assessment Tool: MARIBEL-7 Assessment 23098 ([id number]) PHQ-9 - 29595 - PHQ-9 Billing: Yes ([id number]) Assessment & Plan Assessment & Plan (1) Adult general medical exam: Code(s): Z00.00 - Encounter for general adult medical examination without abnormal findings Category: Medical Plan: 44-year-old?male?presents?for complete?physical?exam Exam?within?normal?limits Encouraged?healthy?diet?with?active?lifestyle?and?plenty?of?exercise (2) Screening for prostate cancer: Code(s): Z12.5 - Encounter for screening for malignant neoplasm of prostate Category: Medical Plan: PSA?was?within?normal?range Will?continue?annual?screening (3) Screening for colon cancer: Code(s): Z12.11 - Encounter for screening for malignant neoplasm of colon Category: Medical Plan: Patient?turns?45?in?2?days. Referring?him?to?Gastroenterology?for?1st?screening?colonoscopy Orders: Orders Comprehensive [place]. Panel Fast 1 Day Z00.00 - Encounter for general adult medical examination without abnormal findings UA CC w/rflx Micro + Cult Today Z00.00 - Encounter for general adult medical examination without abnormal findings Referrals Gastroenterology Referral Z12.11 - Encounter for screening for malignant neoplasm of colon
[2025-02-19 09:30] VITALS: BP 116/70; PULSE 56; RESP 14; TEMP 36.4; O2SAT 99; BMI 27.5
== END 2025-02-19 10:03 | disposition home or self-care (01) ==
LOC: HO.HMCFM 08:56
PROVIDERS: PCP Family Medicine; Visit Provider Family Medicine
DX: Z00.00 Encounter for general adult medical examination without abnormal findings (principal); Z12.5 Encounter for screening for malignant neoplasm of prostate; Z12.11 Encounter for screening for malignant neoplasm of colon

== ENCOUNTER → 2025-02-19 08:55 | Outpatient (BNVA) | payer BC, SELFPAY | PROVIDERS: PCP Family Medicine; Visit Provider Family Medicine | DX: Z13.89 Encounter for screening for other disorder (principal) ==

== ENCOUNTER 2025-02-19 09:03 | Outpatient (REF) | payer BC, SELFPAY ==
[2025-02-19 12:12] LABS: Basophils Percent Auto 0.3 % (0-2); Eosinophils Absolute Auto 0.2 X10*3/uL (0.0-0.4); Eosinophils Percent Auto 4.7 % (0-4); Hematocrit 42.4 % (42.0-52.0); Hemoglobin 14.2 g/dl (14.0-18.0); Imm Gran Abs Auto 0.01 X10*3/uL (0.00-0.03); Imm Gran Pct Auto 0.3 % (0.0-0.4); Lymphocytes Absolute Auto 1.3 X10*3/uL (1.2-4.9); Lymphocytes Percent Auto 35.6 % (20-40); MANUAL DIFF FLAG NO; Mean Corpuscular HGB Conc 33.5 g/dl (31.0-36.0); Mean Corpuscular Hemoglobin 30.5 pg (27.0-33.0); Monocytes Absolute Auto 0.4 X10*3/uL (0.1-1.2); Monocytes Percent Auto 11.9 % (2-11); Neutrophils Absolute Auto 1.7 x10*3/uL (2.0-8.3); Neutrophils Percent Auto 47.2 % (45-73); Platelet Count 206 X10*3/uL (160-400); Red Blood Count 4.66 X10*6/uL (4.60-5.80); Red Cell Distribution Width 11.9 % (11.0-16.0); White Blood Count 3.6 X10*3/uL (4.8-10.8)
[2025-02-19 12:15] LABS: Appearance Urine Clear; Color Urine Yellow; Glucose Urine UA Negative (Negative); Leukocyte Esterase Urine Negative (Negative); Nitrite Urine Negative (Negative); Urine Blood Negative (Negative); Urine Ketones Trace mg/dL (Negative); Urine Protein Negative (Neg-Trace)
[2025-02-19 12:46] LABS: Alanine Aminotransferase 14 U/L (0-40); Albumin Level 4.3 g/dL (3.5-5.0); Alkaline Phosphatase 49 U/L (39-117); Anion Gap 12 (12-20); Aspartate Amino Transferase 22 U/L (5-37); Bilirubin Total 2.4 mg/dL (0.0-1.0); Blood Urea Nitrogen 14 mg/dL (9-16); Calcium 9.3 mg/dL (8.4-10.2); Carbon Dioxide 26 mmol/L (22-29); Chloride 108 mmol/L (96-108); Cholesterol 148 mg/dL (<200); Estimated Glomerular Filt Rate > 60; Glucose Fasting 93 mg/dL (60-99); HDL Cholesterol 47 mg/dL (>40); LDL Cholesterol Calculated 86 mg/dL (<100); Potassium 4.1 mmol/L (3.3-5.1); Sodium 142 mmol/L (135-145); Total Protein 6.9 g/dL (6.5-8.0); Triglycerides 77 mg/dL (<150)
[2025-02-19 13:04] LABS: Prostate Specific Antigen Scr 1.54 ng/mL (<0.05-4.0)
[2025-02-19 13:06] LABS: TSH reflex Free T4 1.85 uIU/mL (0.32-4.0)
[2025-02-19 13:07] LABS: Creatinine Urine 177.48 mg/dL; Microalbum/Creatinine Ratio Ur 4.5 ug/mg cr (<30)
== END 2025-02-19 09:04 | disposition home or self-care (01) ==
LOC: HO.WFDLDS 09:03
PROVIDERS: Visit Provider Family Medicine
DX: Z00.00 Encounter for general adult medical examination without abnormal findings (principal); I10 Essential (primary) hypertension; Z12.5 Encounter for screening for malignant neoplasm of prostate
CPT/HCPCS: 36415; 80053; 80061; 81003; 82043; 82570; 84153; 84443; 85025; 96127

== ENCOUNTER → 2025-03-23 11:46 | Outpatient (AMB) | payer BC, SELFPAY ==
--- NOTE | 2025-03-23 09:51 | MHC.PC.OV ---
Intake Visit Reasons: f/u CPE-labs via telemed Intake Note: patient is scheduled for lab review Car Ferrier Required: No Allergies No Known Allergies Allergy (Verified 03/23/25 11:20) Tobacco use date assessed: 02/19/25 Dental Screening Dental Screen Date: 02/19/25 HPI f/u CPE-labs via telemed HPI Details Patient?presents?to?follow-up?CPE?lab?work Reviewed?labs?with?patient Lipids?all?within?range TSH?normal Renal?function?normal PSA?within?normal?range.??He?is?urinating?normally. Patient?feels?well.??No?complaints. PFSH Medical History Foot pain Surgical History Hx laparoscopic cholecystectomy H/O vasectomy Family History Father Atrial fibrillation Social History Housing: House Patient Tobacco Use Status: Never used Tobacco e-Cigarette/Vaping Use: Never Used service: No Current occupational status: employed Cognitive needs: No Hearing needs: No Vision needs: No Questionnaire Thrive Questionnaire Date Thrive assessed: 02/18/25 MARIBEL-7 AMB Questionnaire MARIBEL-7 Date MARIBEL - 7 assessed: 02/19/25 Source: Developed by Drs. Robles Guo, Alyse Baig, Gabino Hernandez and colleagues, with an educational sergey from [employer]. Review of Systems Const Denies chills, Denies fatigue, Denies fever(s), Denies headache(s) and Denies weakness ENT Denies dizziness and Denies headache(s) Card Denies chest pain, Denies lightheadedness, Denies dyspnea and Denies other (Palpitations) Resp Denies cough, Denies dyspnea, Denies wheezing and Denies other ( shortness of breath) Musc Denies numbness and Denies tingling Neuro Denies dizziness, Denies headache(s), Denies numbness, Denies tingling, Denies paresthesias and Denies weakness Psych Denies anxiety and Denies depression Endo Denies fatigue Aller/Immun Denies wheezing Physical exam (Primary Care) Tobacco/Smoking Status: Tobacco use Status Tobacco use date assessed 02/19/25 03/23/25 09:52 Patient Tobacco Use Status Never used Tobacco 03/23/25 09:52 e-Cigarette/Vaping Use Never Used 03/23/25 09:52 Thrive Assessment: Date of Thrive Assessment Date Thrive assessed 02/18/25 03/23/25 09:52 Telehealth Telehealth Telehealth Platform: Telephone Location of provider rendering services: practice address Location of patient: address on file Patient Identification confirmed using: Name, : Yes Telehealth method: voice only Patient verbally consented to treatment: Yes Patient verbally consented to billing insurance company: Yes Patient informed of any privacy concerns related to visit: Yes Minutes spent on Phone/Video with Pt.: 5 Coding Level of Care Code Tele Est Pt Level 2 (65189) Diagnoses Screening for prostate cancer Z12.5 Assessment & Plan Assessment & Plan (1) Screening for prostate cancer: Code(s): Z12.5 - Encounter for screening for malignant neoplasm of prostate Category: Medical Plan: PSA?was?within?normal?range Will?continue?annual?screening Plan He?can?schedule?his?annual?physical?exam?for?next?year Orders: Orders Comprehensive [place]. Panel Fast 11 Months Z00.00 - Encounter for general adult medical examination without abnormal findings Prostate Specific Antigen Scr 11 Months Z12.5 - Encounter for screening for malignant neoplasm of prostate TSH reflex Free T4 11 Months Z00.00 - Encounter for general adult medical examination without abnormal findings UA CC w/rflx Micro + Cult 11 Months Z00.00 - Encounter for general adult medical examination without abnormal findings Complete Blood Count Auto Diff 11 Months Z00.00 - Encounter for general adult medical examination without abnormal findings Lipid Panel 11 Months Z00.00 - Encounter for general adult medical examination without abnormal findings Microalbumin, Random (w Creat) 11 Months I10 - Essential (primary) hypertension
== END ==
LOC: HO.HMCFM 11:46
PROVIDERS: PCP Family Medicine; Visit Provider Family Medicine
DX: Z12.5 Encounter for screening for malignant neoplasm of prostate (principal)

== ENCOUNTER → 2025-03-23 11:46 | Outpatient (BNVA) | payer BC, SELFPAY | PROVIDERS: PCP Family Medicine; Visit Provider Family Medicine | DX: Z13.89 Encounter for screening for other disorder (principal) ==